=== PATIENT | male | born 2000 | race Hispanic/Latino ===

== ENCOUNTER 2024-12-14 00:42 | Emergency (ER) | payer OTHER, SELFPAY ==
[2024-12-14 00:45] VITALS: BP 143/87
--- NOTE | 2024-12-14 04:52 | ED.GENMED ---
History of Present Illness
<Dot Ontiveros PA-C - Last Filed: 12/14/24 09:54>
General
Chief Complaint: Male Genito-Urinary Symptoms
Source: patient
Exam Limitations: none
Time Seen by Provider: 12/14/24 04:51
Nursing documentation reviewed up to this point in time: agreed with
History of Present Illness
History of Present Illness:
Note:
CHIEF COMPLAINT(S)
Penile tear, pain.
HISTORY OF PRESENT ILLNESS
The patient is a 24-year-old male with no pmh who presented with a penile tear sustained during sexual intercourse with his girlfriend. He reports that the event occurred suddenly, with immediate onset of pain and bleeding. Upon inspection, the
patient noted that the laceration is at the frenulum, where the foreskin connects to the glans. The bleeding comes and goes, but he continues to experience pain, especially upon manipulation or stretching of the area. He is uncircumcised. He denies
any testicular pain, abdominal pain, nausea or vomiting, fevers or chills. He does not take any blood thinners.
PAST MEDICAL HISTORY
Bipolar disorder
PHYSICAL EXAM
General: Alert, no acute distress.
Skin: Warm, dry.
Head: Normocephalic, atraumatic.
Neck: Supple, trachea midline.
Eye, Ears, Nose, Mouth, and Throat: Oral mucosa moist.
Cardiovascular: Normal peripheral perfusion, no edema.
Respiratory: Respirations are non-labored.
Gastrointestinal: Abdomen nondistended non-tender to palpation.
Genitourinary: Small penile frenulum tear noted with minimal bleeding.
Neurological: Alert and oriented to person, place, time, and situation, no focal neurological deficit observed.
Psychiatric: Cooperative, appropriate mood & affect.
PROBLEM LIST
Acute:
1. Penile abrasion with associated pain and bleeding.
PLAN
1. Discussion with urologist regarding the best course of action, including the potential use of dissolvable sutures to manage bleeding vs glue
2. Application of local anesthesia if a procedure is performed to ensure patient comfort.
3. Avoidance of any activities that may exacerbate the laceration until it is adequately healed.
DIFFERENTIAL DIAGNOSIS
The Differential Diagnosis includes, in no particular order and is not limited to:
1. Penile laceration due to trauma
2. Frenulum tear
3. Penile fracture
4. Genital injury from external-source trauma
5. Infection or abscess of penile tissue
6. Hematoma of penile tissue
7. Skin lesion or ulceration
8. Dermatological conditions affecting genital area
9. Traumatic balanoposthitis
10. Injury secondary to foreign body or device use
CHART REVIEW
No prior documentation in [facility] for review
MDM/DISPOSITION
The patient is a 24-year-old male with no pmh who presented with a penile tear sustained during sexual intercourse with his girlfriend. On exam, he has a penile frenulum tear noted. Reviewed case with Dr. George from urology who recommends
bacitracin TID to help support the wound healing on its own. Surgicel with pressure was first applied to help control bleeding which was than removed and than bacitracin was applied. Discussed refraining from intercourse. Discussed follow up with
pcp, urology. Patient stable for discharge.
Phy Exam
<Dot Ontiveros PA-C - Last Filed: 12/14/24 09:54>
Physical Exam
Physical Exam:
see hpi
Course
<Dot Ontiveros PA-C - Last Filed: 12/14/24 09:54>
Vital Signs
Initial and Last Documented VS:
Initial Vital Signs
Temp Pulse Resp BP Pulse Ox
98.5 F 64 18 143/87 97
12/14/24 00:45 12/14/24 00:45 12/14/24 00:45 12/14/24 00:45 12/14/24 00:45
Last Documented Vital Signs
Temp Pulse Resp BP Pulse Ox
97.5 F 67 18 107/78 96
12/14/24 07:04 12/14/24 07:04 12/14/24 07:04 12/14/24 07:04 12/14/24 07:04
<Thaddeus Martinez DO - Last Filed: 12/14/24 05:31>
Vital Signs
Initial and Last Documented VS:
Initial Vital Signs
Temp Pulse Resp BP Pulse Ox
98.5 F 64 18 143/87 97
12/14/24 00:45 12/14/24 00:45 12/14/24 00:45 12/14/24 00:45 12/14/24 00:45
Last Documented Vital Signs
Temp Pulse Resp BP Pulse Ox
97.5 F 67 18 107/78 96
12/14/24 07:04 12/14/24 07:04 12/14/24 07:04 12/14/24 07:04 12/14/24 07:04
<Dot Ontiveros PA-C - Last Filed: 12/14/24 09:54>
MDM/Problems Addressed
Differential Diagnosis Includes:
see hpi
<Dot Ontiveros PA-C - Last Filed: 12/14/24 09:54>
*Pulse Oximetry
SaO2: 97
Oxygen Mode of Delivery: Room air
Patient hypoxic: no
*Critical Care Note
Total Time (30-74mins, 75-104mins- exclusive of procedures): Not Applicable
ED Attending Note
<Dot Ontiveros PA-C - Last Filed: 12/14/24 09:54>
-
Portions of this chart may have been created with voice recognition software.� Occasional wrong word or��sound alike� substitutions may have occurred due to the inherent limitations of voice recognition software.
<Thaddeus Martinez, - Last Filed: 12/14/24 05:31>
ED Attending Note
Patient seen and examined by attending physician: Yes
ED Attending Note:
Male with penile pain and bleeding after intercourse with his girlfriend. He came in because the bleeding would not stop. Send left frenulum of his penis. He is uncircumcised. I have seen this patient in conjunction with the PA. I have reviewed
and agree with her history and treatment plan. We did reach out to urology who recommended bacitracin. He did not recommend suturing. He will follow-up with the patient.
Discharge Plan
Departure
Patient Disposition: Home (Routine Discharge)
Date of Disposition: 12/14/24
Time of Disposition: 06:45
Patient with high blood pressure during this ER visit?: Yes
Condition: Good
Discharge Problem:
Tear of frenulum of foreskin
Instructions: Wound care - ED (DC), Abrasions - ED (DC), BLOOD PRESSURE
Referrals:
Chris Mcgee MD [Family Provider, Internal Medicine]
Christiano George MD [Active, Urology] - Call in 1-3 days for appt
Activity Restrictions/Additional Instructions:
Please continue to monitor your symptoms. Please apply bacitracin to the area 3 times daily for the next few days. Please refrain from sexual activity for 1 to 2 weeks. Please follow-up with urology. PLEASE RETURN TO ER SHOULD YOU HAVE ACUTE
WORSENING OF YOUR BLEEDING, INCREASING PAIN, FEVERS OR CHILLS, PURULENT DRAINAGE, REDNESS OR SWELLING, OR ANY OTHER SIGNS OR SYMPTOMS WORRISOME TO YOU.
Interventions
Interventions:
*Risk Screen - Suicide Last Done: 12/14/24 00:46
*General Assessment Last Done: 12/14/24 00:46
*Neglect/Abuse Screening Last Done: 12/14/24 00:46
*ED- Fall Risk Assessment Last Done: 12/14/24 05:16
*ED COVID-19 Vaccine History Last Done: 12/14/24 00:46
*ED Influenza Vaccine History Last Done: 12/14/24 00:46
*Nursing Disposition Last Done: 12/14/24 07:06
ED-Male Genitourinary Assessment Last Done: 12/14/24 05:06
Discharge Date and Time
Discharge Date/Time: 12/14/24 07:07
Print Language: GREENLANDIC
[2024-12-14 07:04] VITALS: BP 107/78
== END 2024-12-14 07:07 | disposition home or self-care (01) ==
LOC: EMR 00:42
PROVIDERS: EMERGENCY PHYSICIAN Student in an Organized Health Care Education/Training Program; FAMILY PHYSICIAN Internal Medicine
DX: S31.21XA Laceration without foreign body of penis, initial encounter (principal); X58.XXXA Exposure to other specified factors, initial encounter; Y93.89 Activity, other specified
CPT/HCPCS: 99282